=== PATIENT | female | born 1955 | race Asian ===

== ENCOUNTER 2022-05-29 16:20 | Emergency (ER) | payer BC ==
[2022-05-29 16:31] VITALS: RESP 18; BMI 25.9
[2022-05-29] MEDS ORDERED: SODIUM CHLORIDE 0.9% 500 ML INFUS.BAG IV ONE (17:54)
[2022-05-29] MEDS ORDERED: ONDANSETRON 4 MG/2 ML VIAL IVPUSH ONE ×2 (17:54→20:26)
[2022-05-29] MEDS ORDERED: morphine CARPU-JECT 4 MG/1 ML DISP.SYRIN IVPUSH ONE (17:55)
[2022-05-29] MEDS ORDERED: ONDANSETRON 4 MG/2 ML VIAL ONE ×2 (17:59→20:35)
[2022-05-29] MEDS ORDERED: morphine SULFATE 4 MG/ML VIAL ONE (17:59)
[2022-05-29 18:43] LABS: BASO % 1.5 % (0-2.0); EOS % 1.4 % (0-4.5); HEMATOCRIT 41.9 % (32.4-45.2); HEMOGLOBIN 13.8 GM/dL (10.7-15.3); LYMPH % 34.1 % (8-40); MCHC 32.9 g/dl (32.0-36.0); MEAN CELL VOLUME 84.9 fl (80-96); MONO % 7.5 % (3.8-10.2); NEUT % 55.5 % (42.8-82.8); PLATELET COUNT 299 10^3/uL (134-434); RBC 4.93 M/mm3 (3.60-5.2); WHITE BLOOD COUNT 5.4 K/mm3 (4.0-10.0)
[2022-05-29 18:50] LABS: EPI CELLS 2 /uL (0-25.1); HYALINE CASTS 0 /uL (0-3.1); PH,URINE 5.5 (5.0-8.0); URINE APPEARANCE CLEAR; URINE BACTERIA 7 /uL (0-1359); URINE BILIRUBIN NEGATIVE (NEGATIVE); URINE COLOR YELLOW; URINE GLUCOSE (UA) NEGATIVE (NEGATIVE); URINE KETONE TRACE (NEGATIVE); URINE LEUK ESTERASE NEGATIVE (NEGATIVE); URINE NITRITE NEGATIVE (NEGATIVE); URINE PROTEIN NEGATIVE (NEGATIVE); URINE RBC 17 /uL (0-23.9); URINE UROBILINOGEN 0.2 mg/dL (0.2-1.0); URINE WBC 3 /uL (0-25.8)
[2022-05-29 19:23] LABS: ALBUMIN 3.8 g/dl (3.4-5.0); ALK PHOS 89 U/L (45-117); ANION GAP 6 MMOL/L (8-16); BILIRUBIN,TOTAL 0.3 mg/dL (0.2-1); CHLORIDE 104 mmol/L (98-107); CO2 28 mmol/L (21-32); CREATININE 1.2 mg/dL (0.55-1.3); GLUCOSE,RANDOM 91 mg/dL (74-106); LIPASE 427 U/L (73-393); SGOT/AST 79 U/L (15-37); SGPT/ALT 56 U/L (13-61); SODIUM 138 mmol/L (136-145); TOT PROT 8.6 g/dl (6.4-8.2)
[2022-05-29 21:49] VITALS: BP 132/80; PULSE 80; TEMP 97.6
== END 2022-05-29 23:49 | disposition home or self-care (01) ==
LOC: JER 16:20
PROC: 3E033NZ Introduction of Analgesics, Hypnotics, Sedatives into Peripheral Vein, Percutaneous Approach (ICD-10-PCS; principal; 2022-05-29)
PROC: 3E033GC Introduction of Other Therapeutic Substance into Peripheral Vein, Percutaneous Approach (ICD-10-PCS; 2022-05-29)
PROC: 3E033GC Introduction of Other Therapeutic Substance into Peripheral Vein, Percutaneous Approach (ICD-10-PCS; 2022-05-29)
DX: R10.84 Generalized abdominal pain (principal)
CPT/HCPCS: 36415; 71046-TC-FY; 74177-TC; 80053; 81003; 83690; 84132; 84484; 85025; 87086; 93005; 93010; 99285-25; C9803-CS; Q9967; U0003; U0005

== ENCOUNTER 2022-05-30 16:15 | Emergency (ER) | payer BC ==
[2022-05-30 16:43] VITALS: TEMP 97.3; BMI 25.9
[2022-05-30] MEDS ORDERED: SODIUM CHLORIDE 0.9% 500 ML INFUS.BAG IV ONE (17:41)
[2022-05-30] MEDS ORDERED: FAMOTIDINE 20 MG/50 ML IVPB 20 MG/50 ML MG IVPB ONE ×2 (17:41→18:16)
[2022-05-30] MEDS ORDERED: MAG HYDROX/AL HYDROX/SIMETH 30 ML UNIT-DOSE CUP PO ONE (17:41)
[2022-05-30] MEDS ORDERED: ONDANSETRON 4 MG/2 ML VIAL IVPUSH ONE (17:44)
[2022-05-30] MEDS ORDERED: ONDANSETRON 4 MG/2 ML VIAL ONE (18:16)
[2022-05-30] MEDS ORDERED: MAG HYDROX/AL HYDROX/SIMETH 30 ML UNIT-DOSE CUP ONE (18:16)
[2022-05-30 18:33] LABS: BASO % 1.2 % (0-2.0); EOS % 1.9 % (0-4.5); HEMATOCRIT 38.4 % (32.4-45.2); HEMOGLOBIN 12.5 GM/dL (10.7-15.3); LYMPH % 38.5 % (8-40); MCH 27.7 pg (25.7-33.7); MCHC 32.5 g/dl (32.0-36.0); MEAN CELL VOLUME 85.1 fl (80-96); MEAN PLT VOLUME 7.3 fl (7.5-11.1); MONO % 8.5 % (3.8-10.2); NEUT % 49.9 % (42.8-82.8); PLATELET COUNT 241 10^3/uL (134-434); RBC 4.51 M/mm3 (3.60-5.2); WHITE BLOOD COUNT 4.4 K/mm3 (4.0-10.0)
[2022-05-30 18:40] LABS: INR 0.99 (0.83-1.09); PROTHROMBIN TIME (PATIENT) 11.4 SEC (9.7-13.0)
[2022-05-30 18:43] LABS: ACTIVATED PTT 32.7 SECONDS (25.2-36.5)
[2022-05-30 18:48] LABS: ALBUMIN 3.6 g/dl (3.4-5.0); BLOOD UREA NITROGEN 18.3 mg/dL (7-18); CALCIUM 9.1 mg/dL (8.5-10.1)
[2022-05-30 18:52] LABS: BILIRUBIN,TOTAL 0.3 mg/dL (0.2-1)
[2022-05-30 18:53] LABS: TOT PROT 7.4 g/dl (6.4-8.2)
[2022-05-30] MEDS ORDERED: ACETAMINOPHEN 1000 MG/100 ML BAG IVPB ONE (19:01)
[2022-05-30 20:22] LABS: EPI CELLS 2 /uL (0-25.1); HYALINE CASTS 0 /uL (0-3.1); URINE APPEARANCE CLEAR; URINE BACTERIA 2 /uL (0-1359); URINE BILIRUBIN NEGATIVE (NEGATIVE); URINE COLOR YELLOW; URINE GLUCOSE (UA) NEGATIVE (NEGATIVE); URINE KETONE NEGATIVE (NEGATIVE); URINE LEUK ESTERASE NEGATIVE (NEGATIVE); URINE NITRITE NEGATIVE (NEGATIVE); URINE PROTEIN NEGATIVE (NEGATIVE); URINE RBC 17 /uL (0-23.9); URINE UROBILINOGEN 0.2 mg/dL (0.2-1.0); URINE WBC 8 /uL (0-25.8)
[2022-05-30] MEDS ORDERED: ACETAMINOPHEN 500 MG TABLET (FP) PO ONE (20:32)
[2022-05-30] MEDS ORDERED: ACETAMINOPHEN 325 MG TABLET (FP) ONE (20:33)
[2022-05-30 21:34] VITALS: BP 156/96; PULSE 97; RESP 16
== END 2022-05-30 21:33 | disposition home or self-care (01) ==
LOC: JER 16:15
PROC: 3E033NZ Introduction of Analgesics, Hypnotics, Sedatives into Peripheral Vein, Percutaneous Approach (ICD-10-PCS; principal; 2022-05-30)
PROC: 3E033GC Introduction of Other Therapeutic Substance into Peripheral Vein, Percutaneous Approach (ICD-10-PCS; 2022-05-30)
DX: R10.13 Epigastric pain (principal)
CPT/HCPCS: 36415; 71046-TC-FY; 80053; 81003; 83690; 84484; 85025; 85610; 85730; 93005; 93010; 99284-25; C9803-CS; U0003; U0005

== ENCOUNTER 2022-08-28 05:56 | Day surgery (SDC) | payer BC ==
[2022-08-27 15:40] VITALS: BMI 25.0
[2022-08-28] MEDS ORDERED: FENTANYL CITRATE/PF 50 MCG/ML VIAL IVPUSH ONE ×2 (10:00→10:32)
[2022-08-28] MEDS ORDERED: MIDAZOLAM HCL 2 MG/2 ML SINGLE DOSE VIAL IVPUSH ONE ×2 (10:00→10:32)
[2022-08-28] MEDS ORDERED: FENTANYL CITRATE/PF 50 MCG/ML VIAL ONE ×2 (10:03→10:28)
[2022-08-28] MEDS ORDERED: MIDAZOLAM HCL 2 MG/2 ML SINGLE DOSE VIAL ONE (10:03)
[2022-08-28] MEDS ORDERED: ACETAMINOPHEN 1000 MG/100 ML BAG IVPB ONE (10:55)
[2022-08-28] MEDS ORDERED: ACETAMINOPHEN INJECTION 100 ML IVPB ONE (11:04)
[2022-08-28 11:33] VITALS: RESP 18
[2022-08-28] MEDS ORDERED: oxyCODONE HCL 5 MG TABLET PO ONE (13:05)
[2022-08-28] MEDS ORDERED: oxyCODONE HCL 5 MG TABLET ONE (13:05)
[2022-08-28] MEDS ORDERED: ONDANSETRON 4 MG/2 ML VIAL ONE (15:20)
[2022-08-28] MEDS ORDERED: ONDANSETRON 4 MG/2 ML VIAL IVPB ONE (15:25)
[2022-08-28 16:41] VITALS: BP 128/71; PULSE 69; TEMP 98.6
== END 2022-08-28 16:20 | disposition home or self-care (01) ==
LOC: JASU-SURG 05:56
PROVIDERS: ATTEND Internal Medicine Gastroenterology
PROC: BF45ZZZ Ultrasonography of Liver (ICD-10-PCS; principal; 2022-08-28)
PROC: 0FD03ZX Extraction of Liver, Percutaneous Approach, Diagnostic (ICD-10-PCS; 2022-08-28)
DX: R94.5 Abnormal results of liver function studies (principal); K74.00 Hepatic fibrosis, unspecified; Z88.0 Allergy status to penicillin
CPT/HCPCS: 47000; 71046-TC-FY; 76942-TC; 88307-TC; 88313-TC

== ENCOUNTER 2023-05-24 11:36 | Inpatient (IN) | payer BC ==
[2023-05-24 13:41] LABS: EPI CELLS 2 /uL (0-25.1); HYALINE CASTS 0 /uL (0-3.1); PH,URINE 5.5 (5.0-8.0); URINE APPEARANCE CLEAR; URINE BACTERIA 1 /uL (0-1359); URINE BILIRUBIN NEGATIVE (NEGATIVE); URINE COLOR YELLOW; URINE GLUCOSE (UA) NEGATIVE (NEGATIVE); URINE KETONE TRACE (NEGATIVE); URINE LEUK ESTERASE NEGATIVE (NEGATIVE); URINE NITRITE NEGATIVE (NEGATIVE); URINE PROTEIN NEGATIVE (NEGATIVE); URINE RBC 75 /uL (0-23.9); URINE UROBILINOGEN 0.2 mg/dL (0.2-1.0); URINE WBC 6 /uL (0-25.8)
[2023-05-24] MEDS ORDERED: ONDANSETRON 4 MG/2 ML VIAL IVPUSH ONE (13:46)
[2023-05-24] MEDS ORDERED: ACETAMINOPHEN 1000 MG/100 ML BAG IVPB ONE ×2 (13:46→18:29)
[2023-05-24] MEDS ORDERED: FAMOTIDINE 20 MG/50 ML IVPB 20 MG/50 ML MG IVPB ONE ×2 (13:46→13:50)
[2023-05-24] MEDS ORDERED: PANTOPRAZOLE SODIUM 40 MG VIAL IVPUSH ONE (13:47)
[2023-05-24] MEDS ORDERED: MAG HYDROX/AL HYDROX/SIMETH -MYLANTA- ORAL SUSPENSION PO ONE (13:47)
[2023-05-24] MEDS ORDERED: SUCRALFATE 1 GM TABLET (FP) PO ONE (13:48)
[2023-05-24] MEDS ORDERED: ACETAMINOPHEN INJECTION 100 ML IVPB ONE ×2 (13:50→18:40)
[2023-05-24] MEDS ORDERED: MAG HYDROX/AL HYDROX/SIMETH 30 ML UNIT-DOSE CUP ONE (13:50)
[2023-05-24] MEDS ORDERED: ONDANSETRON 4 MG/2 ML VIAL ONE (13:50)
[2023-05-24 14:13] LABS: BASO % 0.7 % (0-2.0); EOS % 0.2 % (0-4.5); HEMATOCRIT 38.1 % (32.4-45.2); HEMOGLOBIN 11.9 GM/dL (10.7-15.3); LYMPH % 14.1 % (8-40); MCH 27.4 pg (25.7-33.7); MCHC 31.4 g/dl (32.0-36.0); MEAN CELL VOLUME 87.3 fl (80-96); MEAN PLT VOLUME 7.3 fl (7.5-11.1); MONO % 11.1 % (3.8-10.2); NEUT % 73.9 % (42.8-82.8); PLATELET COUNT 297 10^3/uL (134-434); RBC 4.36 M/mm3 (3.60-5.2); RDW 15.2 % (11.6-15.6); WHITE BLOOD COUNT 6.2 K/mm3 (4.0-10.0)
[2023-05-24 14:21] LABS: INR 1.01 (0.83-1.09); PROTHROMBIN TIME (PATIENT) 11.7 SEC (9.7-13.0)
[2023-05-24 14:24] LABS: ACTIVATED PTT 29.9 SECONDS (25.2-36.5)
[2023-05-24 15:05] LABS: CHLORIDE 108 mmol/L (98-107); POTASSIUM 3.4 mmol/L (3.5-5.1); SODIUM 141 mmol/L (136-145)
[2023-05-24 15:07] LABS: CALCIUM 8.3 mg/dL (8.5-10.1)
[2023-05-24 15:08] LABS: ALBUMIN 3.6 g/dl (3.4-5.0); ANION GAP 6 MMOL/L (8-16); BLOOD UREA NITROGEN 11.4 mg/dL (7-18); CO2 27 mmol/L (21-32); GLUCOSE,RANDOM 85 mg/dL (74-106); LIPASE 437 U/L (73-393); MAGNESIUM 2.2 mg/dL (1.8-2.4)
[2023-05-24 15:10] LABS: SGPT/ALT 31 U/L (13-61)
[2023-05-24 15:11] LABS: CREATININE 0.9 mg/dL (0.55-1.3); SGOT/AST 18 U/L (15-37)
[2023-05-24 15:12] LABS: TOT PROT 7.1 g/dl (6.4-8.2)
[2023-05-24 15:13] LABS: ALK PHOS 58 U/L (45-117); BILIRUBIN,TOTAL 0.5 mg/dL (0.2-1)
[2023-05-24 15:38] LABS: ERYTHROCYTE SEDIMENTATION RATE 25 mm/hr (0-30)
[2023-05-24] MEDS ORDERED: REMDESIVIR 200 MG in SODIUM CHLORIDE 250 ML IVPB ONE (16:13)
[2023-05-24] MEDS ORDERED: ONDANSETRON 4 MG/2 ML VIAL IVPUSH PRN (16:54)
[2023-05-24] MEDS ORDERED: PANTOPRAZOLE SODIUM 40 MG/100 ML BAG IVPB ONE (17:31)
[2023-05-24] MEDS: PANTOPRAZOLE 40 MG TABLET PO SCH (17:33)
[2023-05-24] MEDS ORDERED: POTASSIUM CHLORIDE TABS 20 MEQ TABLET.ER (FP) PO ONE ×2 (17:49→18:23)
[2023-05-24] MEDS ORDERED: ACETAMINOPHEN 325 MG TABLET (FP) ONE (21:18)
[2023-05-24] MEDS: ACETAMINOPHEN 325 MG TABLET (FP) PO PRN (21:24)
[2023-05-24] MEDS: DEXTROSE 5%-NORMAL SALINE 1,000 ML IV SCH (22:00)
[2023-05-25] MEDS: ACETAMINOPHEN 325 MG TABLET (FP) PO PRN ×4 (03:41→23:18)
[2023-05-25 06:22] VITALS: BMI 27.7
[2023-05-25 09:50] LABS: HEMATOCRIT 36.7 % (32.4-45.2); HEMOGLOBIN 11.6 GM/dL (10.7-15.3); MCH 27.7 pg (25.7-33.7); MCHC 31.7 g/dl (32.0-36.0); MEAN CELL VOLUME 87.2 fl (80-96); MEAN PLT VOLUME 7.6 fl (7.5-11.1); PLATELET COUNT 255 10^3/uL (134-434); RBC 4.21 M/mm3 (3.60-5.2); RDW 14.7 % (11.6-15.6); WHITE BLOOD COUNT 5.6 K/mm3 (4.0-10.0)
[2023-05-25] MEDS: PANTOPRAZOLE 40 MG TABLET PO SCH (09:55)
[2023-05-25] MEDS ORDERED: REMDESIVIR 100 MG in SODIUM CHLORIDE 250 ML IVPB SCH (10:00)
[2023-05-25] MEDS: BENZOCAINE/MENTHOL (CHLORASEPTIC ) LOZENGE MM SCH ×2 (10:10→17:07)
[2023-05-25] MEDS: LOSARTAN 50MG/HCTZ 12.5MG 1 TAB PO SCH (10:10)
[2023-05-25] MEDS: diphenhydrAMINE HCL 25 MG CAPSULE (FP) PO PRN ×3 (10:11→23:19)
[2023-05-25 10:23] LABS: CHOLESTEROL 164 mg/dL (50-200)
[2023-05-25 10:24] LABS: LDL CHOLESTEROL (ONLY SJRH) 84 mg/dL (5-100)
[2023-05-25 10:26] LABS: HDL CHOLESTEROL 75 mg/dL (40-60)
[2023-05-25 10:38] LABS: IRON SERUM 19 ug/dL (50-175); TOTAL IRON BINDING CAPACITY 308 ug/dL (250-450)
[2023-05-25] MEDS ORDERED: IRON SUCROSE INJECTION 200 MG in SODIUM CHLORIDE 90 ML IVPB ONE (14:00)
[2023-05-25] MEDS: DEXTROSE 5%-NORMAL SALINE 1,000 ML IV SCH ×2 (15:26→17:07)
[2023-05-25] MEDS: FLUTICASONE PROP 0.05% 16 GM NASAL SPRAY NS SCH ×2 (17:03→22:24)
[2023-05-25] MEDS: LORATADINE 10 MG TABLET PO SCH (17:03)
[2023-05-25] MEDS: REMDESIVIR 100 MG in SODIUM CHLORIDE 250 ML IVPB SCH (18:05)
[2023-05-25] MEDS ORDERED: FLUTICASONE PROP 0.05% 16 GM NASAL SPRAY NS SCH (22:00)
[2023-05-25] MEDS: HEPARIN NA (PORCINE) 5,000 UNITS/ML 1ML VIAL SQ SCH (22:23)
[2023-05-26] MEDS: DEXTROSE 5%-NORMAL SALINE 1,000 ML IV SCH ×2 (07:31→22:37)
[2023-05-26 09:14] LABS: HEMATOCRIT 35.2 % (32.4-45.2); HEMOGLOBIN 11.5 GM/dL (10.7-15.3); MCH 27.7 pg (25.7-33.7); MCHC 32.5 g/dl (32.0-36.0); MEAN CELL VOLUME 85.1 fl (80-96); MEAN PLT VOLUME 7.1 fl (7.5-11.1); PLATELET COUNT 227 10^3/uL (134-434); RBC 4.14 M/mm3 (3.60-5.2); WHITE BLOOD COUNT 3.3 K/mm3 (4.0-10.0)
[2023-05-26 09:33] LABS: POTASSIUM 3.2 mmol/L (3.5-5.1)
[2023-05-26 09:40] LABS: ALBUMIN 2.9 g/dl (3.4-5.0); MAGNESIUM 2.2 mg/dL (1.8-2.4)
[2023-05-26 09:42] LABS: CREATININE 0.9 mg/dL (0.55-1.3)
[2023-05-26 09:44] LABS: BILIRUBIN,TOTAL 0.3 mg/dL (0.2-1)
[2023-05-26] MEDS ORDERED: POTASSIUM CHLORIDE TABS 20 MEQ TABLET.ER (FP) PO ONE (10:25)
[2023-05-26] MEDS: LOSARTAN 50MG/HCTZ 12.5MG 1 TAB PO SCH (10:30)
[2023-05-26] MEDS: HEPARIN NA (PORCINE) 5,000 UNITS/ML 1ML VIAL SQ SCH ×2 (10:30→22:36)
[2023-05-26] MEDS: diphenhydrAMINE HCL 25 MG CAPSULE (FP) PO PRN ×2 (10:30→22:34)
[2023-05-26] MEDS: PANTOPRAZOLE 40 MG TABLET PO SCH (10:30)
[2023-05-26] MEDS: BENZOCAINE/MENTHOL (CHLORASEPTIC ) LOZENGE MM SCH (10:30)
[2023-05-26] MEDS: LORATADINE 10 MG TABLET PO SCH (10:30)
[2023-05-26] MEDS: ACETAMINOPHEN 325 MG TABLET (FP) PO PRN ×2 (10:31→22:34)
[2023-05-26] MEDS: FLUTICASONE PROP 0.05% 16 GM NASAL SPRAY NS SCH ×2 (10:40→22:39)
[2023-05-26] MEDS: REMDESIVIR 100 MG in SODIUM CHLORIDE 250 ML IVPB SCH (19:00)
[2023-05-26] MEDS ORDERED: DOXYCYCLINE INJECTION 100 MG in DEXTROSE 5%-WATER 100 ML IVPB SCH (22:00)
[2023-05-27] MEDS: LORATADINE 10 MG TABLET PO SCH (09:57)
[2023-05-27] MEDS: DOXYCYCLINE HYCLATE 100 MG CAPSULE PO SCH ×2 (09:57→18:32)
[2023-05-27] MEDS: PANTOPRAZOLE 40 MG TABLET PO SCH (09:57)
[2023-05-27] MEDS: HEPARIN NA (PORCINE) 5,000 UNITS/ML 1ML VIAL SQ SCH ×2 (09:57→21:51)
[2023-05-27] MEDS: FLUTICASONE PROP 0.05% 16 GM NASAL SPRAY NS SCH ×2 (09:58→21:52)
[2023-05-27] MEDS: diphenhydrAMINE HCL 25 MG CAPSULE (FP) PO PRN ×3 (10:06→21:56)
[2023-05-27] MEDS: LOSARTAN 50MG/HCTZ 12.5MG 1 TAB PO SCH (10:06)
[2023-05-27] MEDS: ACETAMINOPHEN 325 MG TABLET (FP) PO PRN ×3 (10:06→21:56)
[2023-05-27 12:04] LABS: POTASSIUM 3.6 mmol/L (3.5-5.1)
[2023-05-27 12:08] LABS: BLOOD UREA NITROGEN 13.6 mg/dL (7-18); CALCIUM 8.4 mg/dL (8.5-10.1)
[2023-05-27 12:11] LABS: CREATININE 0.9 mg/dL (0.55-1.3)
[2023-05-27] MEDS: REMDESIVIR 100 MG in SODIUM CHLORIDE 250 ML IVPB SCH (18:32)
[2023-05-27] MEDS: DEXTROSE 5%-NORMAL SALINE 1,000 ML IV SCH (18:34)
[2023-05-28] MEDS: HEPARIN NA (PORCINE) 5,000 UNITS/ML 1ML VIAL SQ SCH (09:33)
[2023-05-28] MEDS: PANTOPRAZOLE 40 MG TABLET PO SCH (09:33)
[2023-05-28] MEDS: DOXYCYCLINE HYCLATE 100 MG CAPSULE PO SCH (09:33)
[2023-05-28] MEDS: LORATADINE 10 MG TABLET PO SCH (09:33)
[2023-05-28] MEDS: LOSARTAN 50MG/HCTZ 12.5MG 1 TAB PO SCH (09:46)
[2023-05-28] MEDS: FLUTICASONE PROP 0.05% 16 GM NASAL SPRAY NS SCH (09:47)
[2023-05-28 09:55] LABS: HEMOGLOBIN 12.9 GM/dL (10.7-15.3); MCH 27.8 pg (25.7-33.7); MEAN CELL VOLUME 84.1 fl (80-96); MEAN PLT VOLUME 7.4 fl (7.5-11.1); PLATELET COUNT 275 10^3/uL (134-434); RBC 4.64 M/mm3 (3.60-5.2); RDW 15.3 % (11.6-15.6)
[2023-05-28 10:00] VITALS: RESP 18
[2023-05-28 10:11] LABS: POTASSIUM 3.4 mmol/L (3.5-5.1)
[2023-05-28 10:15] LABS: CALCIUM 8.7 mg/dL (8.5-10.1)
[2023-05-28 10:16] LABS: BLOOD UREA NITROGEN 13.5 mg/dL (7-18)
[2023-05-28 10:19] LABS: CREATININE 0.9 mg/dL (0.55-1.3)
[2023-05-28 10:21] LABS: BILIRUBIN,TOTAL 0.5 mg/dL (0.2-1)
[2023-05-28 10:22] LABS: TOT PROT 7.4 g/dl (6.4-8.2)
[2023-05-28 10:30] LABS: ALBUMIN 3.6 g/dl (3.4-5.0)
[2023-05-28] MEDS ORDERED: LIPASE/PROTEASE/AMYLASE 36,000 UNIT CAPSULE PO SCH (12:00)
[2023-05-28] MEDS ORDERED: RIFAXIMIN 550 MG TABLET PO SCH (14:00)
[2023-05-28] MEDS ORDERED: REMDESIVIR 100 MG in SODIUM CHLORIDE 250 ML IVPB ONE (15:00)
[2023-05-28 15:09] VITALS: BP 123/79; PULSE 61; TEMP 98.7
[2023-05-28] MEDS ORDERED: POTASSIUM CHLORIDE TABS 10 MEQ TABLET.ER (FP) PO ONE (17:54)
== END 2023-05-28 16:43 | disposition home or self-care (01) | DRG 179 ==
LOC: JER 11:36 → JERBED 12:34 → J8W 05-25 01:14
PROVIDERS: ADMIT Family Medicine; ATTEND Family Medicine
PROC: XW033E5 Introduction of Remdesivir Anti-infective into Peripheral Vein, Percutaneous Approach, New Technology Group 5 (ICD-10-PCS; principal; 2023-05-24)
DX: U07.1 COVID-19 (principal); M06.9 Rheumatoid arthritis, unspecified; M50.30 Other cervical disc degeneration, unspecified cervical region; K21.9 Gastro-esophageal reflux disease without esophagitis; I45.10 Unspecified right bundle-branch block; R09.02 Hypoxemia; J01.80 Other acute sinusitis; D50.9 Iron deficiency anemia, unspecified; R10.84 Generalized abdominal pain; Z22.7 Latent tuberculosis; Z85.3 Personal history of malignant neoplasm of breast
CPT/HCPCS: 0241U-QW; 36415; 71045-TC-FY; 74177-TC; 76705-TC; 76775-TC; 80048; 80053; 80061; 81003; 82272; 82550; 82553; 82656; 83036; 83540; 83550; 83605; 83690; 83735; 84443; 84484; 85025; 85027; 85610; 85651; 85730; 86140; 86705; 86707; 86708; 86850; 86900; 86901; 87040; 87086; 87340; 87350; 87517; 87522; 93005; 93010; 97116-GP; 99285-25; C9399; J1644; J1756; Q9967

== ENCOUNTER 2023-12-17 11:29 | Emergency (ER) | payer BC ==
[2023-12-17 12:09] VITALS: BMI 24.5
[2023-12-17] MEDS ORDERED: ACETAMINOPHEN 325 MG TABLET (FP) ONE (12:44)
[2023-12-17] MEDS: ACETAMINOPHEN 500 MG TABLET (FP) PO ONE (12:54)
[2023-12-17 13:08] LABS: BASO % 0.4 % (0-2.0); EOS % 0.3 % (0-4.5); HEMATOCRIT 39.2 % (32.4-45.2); HEMOGLOBIN 12.6 GM/dL (10.7-15.3); LYMPH % 22.7 % (8-40); MCH 28.7 pg (25.7-33.7); MCHC 32.1 g/dl (32.0-36.0); MEAN CELL VOLUME 89.2 fl (80-96); MEAN PLT VOLUME 6.6 fl (7.5-11.1); MONO % 6.6 % (3.8-10.2); PLATELET COUNT 304 10^3/uL (134-434); RDW 15.9 % (11.6-15.6); WHITE BLOOD COUNT 8.9 K/mm3 (4.0-10.0)
[2023-12-17 13:40] LABS: POTASSIUM 3.9 mmol/L (3.5-5.1)
[2023-12-17 13:45] LABS: ALBUMIN 3.5 g/dl (3.4-5.0); BLOOD UREA NITROGEN 18.3 mg/dL (7-18); CALCIUM 9.7 mg/dL (8.5-10.1)
[2023-12-17 13:50] LABS: BILIRUBIN,TOTAL 0.5 mg/dL (0.2-1); TOT PROT 7.1 g/dl (6.4-8.2)
[2023-12-17 15:18] VITALS: BP 125/75; PULSE 85; RESP 19; TEMP 98.5
[2023-12-17] MEDS ORDERED: diphenhydrAMINE HCL 25 MG CAPSULE (FP) PO ONE (15:32)
[2023-12-17] MEDS: diphenhydrAMINE HCL 25 MG CAPSULE (FP) PO ONE (15:35)
== END 2023-12-17 16:23 | disposition home or self-care (01) ==
LOC: JER 11:29
DX: R07.81 Pleurodynia (principal)
CPT/HCPCS: 36415; 71275-TC; 80053; 85025; 99285-25; Q9967